=== PATIENT | male | born 1950 | race African-American/Black ===

== ENCOUNTER 2018-12-16 05:17 | Inpatient (IN) | payer MEDICARE, MEDICAID ==
[~2018-12-16] VITALS: Ht 180.3 cm; Wt 95.7 kg
[2018-12-16] MEDS ORDERED: KETOROLAC 60MG/2ML VIAL IM ONE (06:30)
[2018-12-16] MEDS ORDERED: MORPHINE SULFATE 10 MG/ML CPJ IM ONE (06:30)
[2018-12-16 07:08] LABS: HEMATOCRIT. 40.9 % (42.0-52.0); HEMOGLOBIN. 13.3 g/dL (14.0-18.0); MEAN CORPUSCULAR HEMOGLOBIN 28.7 pg (28.0-32.0); MEAN CORPUSCULAR VOLUME 88.3 fL (80.0-94.0); MEAN PLATELET VOLUME 7.3 fl (7.4-10.4); PLATELET 303 x1000/uL (130-400); RED BLOOD CELL COUNT 4.63 mill/uL (4.7-6.1); RED CELL DISTRIBUTION WIDTH 16.1 % (11.6-14.6)
[2018-12-16 07:14] LABS: CHLORIDE 107 mEq/L (98-107)
[2018-12-16] MEDS ORDERED: PIPERACILLIN/TAZ 3.375G PREMIX 50 ML IV ONE (07:30)
[2018-12-16] MEDS ORDERED: METRONIDAZOLE 500 MG PREMIX 100 ML IV ONE (07:30)
[2018-12-16 07:34] LABS: INR 0.9; PARTIAL THROMBOPLASTIN TIME 26.3 sec (23.4-31.0); PROTHROMBIN TIME 9.5 sec (9.1-11.1)
[2018-12-16] MEDS ORDERED: VANCOMYCIN 1 G PREMIX 200 ML IV SCH (08:15)
[2018-12-16 08:25] LABS: CLARITY URINE CLOUDY (CLEAR); COLOR URINE AMBER (YELLOW); KETONES URINE TRACE (NEGATIVE); LEUKOCYTE ESTERASE URINE NEGATIVE (NEGATIVE); NITRITE URINE NEGATIVE (NEGATIVE); OCCULT BLOOD URINE 3+ (NEGATIVE); PH URINE 5.5 (4.5-8.0); PROTEIN URINE 1+ (NEGATIVE); SPECIFIC GRAVITY URINE 1.028 (1.005-1.030)
[2018-12-16] MEDS ORDERED: INSULIN LISPRO 100 UNITS/ML SUBCUT ONE (09:30)
[2018-12-16 09:40] LABS: PLATELET ESTIMATE NORMAL
[2018-12-16] MEDS ORDERED: MAGNESIUM/ALUMINUM HYDROXIDE/SIMETHICONE 30ML UDC PO PRN (11:15)
[2018-12-16] MEDS ORDERED: ONDANSETRON HCL 4MG/2ML INJ IV PRN (11:15)
[2018-12-16] MEDS ORDERED: CLONIDINE 0.1MG TABLET PO PRN (11:15)
[2018-12-16] MEDS ORDERED: ENOXAPARIN 40MG/0.4ML SYR SUBCUT SCH (11:15)
[2018-12-16] MEDS ORDERED: GUAIFENESIN 200MG/10ML SUGAR FREE UDC PO PRN (11:15)
[2018-12-16] MEDS ORDERED: DEXTROSE 50% WATER 50ML SYRINGE IV PRN (11:15)
[2018-12-16] MEDS ORDERED: IPRATROPIUM/ALBUTEROL 0.5-3(2.5)MG/3ML NEB INH PRN (11:15)
[2018-12-16] MEDS ORDERED: NA PHOS,M-B/NA PHOS,DI-BA ENEMA 118ML PR PRN (11:15)
[2018-12-16] MEDS ORDERED: ACETAMINOPHEN 325MG TABLET PO PRN (11:15)
[2018-12-16] MEDS ORDERED: DOCUSATE SODIUM 100MG CAPSULE PO PRN (11:15)
[2018-12-16] MEDS ORDERED: TRAMADOL 50MG TABLET PO PRN (11:15)
[2018-12-16 11:44] LABS: T4 FREE 1.24 ng/dL (0.76-1.46)
[2018-12-16 12:00] VITALS: BP_SYST 138; BP_DIAS 65; BP_DIAS 68
[2018-12-16 12:07] LABS: VITAMIN B12 SERUM 525 pg/mL (211-911)
[2018-12-16 12:08] LABS: FOLIC ACID (FOLATE) SERUM > 20.00 ng/mL (>5.38)
[2018-12-16] MEDS: BLOOD SUGAR DIAGNOSTIC STRIP TEST SCH ×3 (12:20→20:25)
[2018-12-16] MEDS: ASCORBIC ACID 500 MG TABLET PO SCH ×2 (12:28→20:05)
[2018-12-16] MEDS: ZINC SULFATE 220 MG ( 50 ) CAPSULE PO SCH (12:28)
[2018-12-16] MEDS: FAMOTIDINE 20MG TABLET PO SCH ×2 (12:28→20:05)
[2018-12-16] MEDS: ENOXAPARIN 30MG/0.3ML SYR SUBCUT SCH ×2 (12:31→20:06)
[2018-12-16] MEDS: INSULIN LISPRO 100 UNITS/ML SUBCUT SCH ×2 (12:50→18:10)
[2018-12-16] MEDS: PIPERACILLIN/TAZ 3.375G PREMIX 50 ML IV SCH ×2 (15:13→21:33)
[2018-12-16 16:00] VITALS: BP 128/68
[2018-12-16] MEDS: LACTULOSE 20G/30ML UDC PO SCH (17:44)
[2018-12-16 20:00] VITALS: BP 134/68
[2018-12-16] MEDS: TAMSULOSIN HCL 0.4MG SR CAPSULE PO SCH (20:05)
[2018-12-16] MEDS ORDERED: ZOLPIDEM TARTRATE 5MG TABLET PO PRN (21:00)
[2018-12-16] MEDS: NICOTINE 14MG PATCH TD SCH (21:34)
[2018-12-17] MEDS: INSULIN LISPRO 100 UNITS/ML SUBCUT SCH ×5 (03:02→21:00)
[2018-12-17] MEDS: LACTULOSE 20G/30ML UDC PO SCH ×2 (06:00→17:31)
[2018-12-17] MEDS: PIPERACILLIN/TAZ 3.375G PREMIX 50 ML IV SCH ×3 (06:20→22:00)
[2018-12-17] MEDS: BLOOD SUGAR DIAGNOSTIC STRIP TEST SCH ×4 (07:20→22:42)
[2018-12-17 08:00] VITALS: BP 149/80
[2018-12-17] MEDS: TAMSULOSIN HCL 0.4MG SR CAPSULE PO SCH ×2 (09:27→22:31)
[2018-12-17] MEDS: DUTASTERIDE 0.5MG CAPSULE PO SCH (09:28)
[2018-12-17] MEDS: FAMOTIDINE 20MG TABLET PO SCH ×2 (09:28→22:31)
[2018-12-17] MEDS: ZINC SULFATE 220 MG ( 50 ) CAPSULE PO SCH (09:28)
[2018-12-17] MEDS: ASCORBIC ACID 500 MG TABLET PO SCH ×2 (09:28→22:31)
[2018-12-17] MEDS: ENOXAPARIN 30MG/0.3ML SYR SUBCUT SCH ×2 (09:29→22:31)
[2018-12-17] MEDS: NICOTINE 14MG PATCH TD SCH (09:30)
[2018-12-17 12:36] VITALS: BP 144/78
[2018-12-17 12:55] LABS: *AMPHETAMINES SCREEN URINE NEGATIVE (NEGATIVE); *BARBITURATES SCREEN URINE NEGATIVE (NEGATIVE); OPIATES URINE SCREEN NEGATIVE (NEGATIVE)
[2018-12-17 12:57] LABS: *COCAINE SCREEN URINE NEGATIVE (NEGATIVE)
[2018-12-17 12:58] LABS: PHENCYCLIDINE URINE SCREEN NEGATIVE (NEGATIVE)
[2018-12-17 12:59] LABS: *BENZODIAZEPINES SCREEN URINE NEGATIVE (NEGATIVE); CANNABINOID URINE SCREEN NEGATIVE (NEGATIVE)
[2018-12-17 13:01] LABS: METHADONE URINE SCREEN NEGATIVE (NEGATIVE)
[2018-12-17 16:25] VITALS: BP 147/78
[2018-12-17 20:00] VITALS: BP 144/83
[2018-12-18] VITALS: BP 148/75
[2018-12-18 04:00] VITALS: BP 148/82
[2018-12-18] MEDS: LACTULOSE 20G/30ML UDC PO SCH (06:00)
[2018-12-18] MEDS: PIPERACILLIN/TAZ 3.375G PREMIX 50 ML IV SCH (06:00)
[2018-12-18] MEDS: BLOOD SUGAR DIAGNOSTIC STRIP TEST SCH (07:20)
[2018-12-18] MEDS: INSULIN LISPRO 100 UNITS/ML SUBCUT SCH (07:50)
[2018-12-18 08:00] VITALS: BP 166/87
[2018-12-18] MEDS: NICOTINE 14MG PATCH TD SCH (09:00)
[2018-12-18] MEDS: DUTASTERIDE 0.5MG CAPSULE PO SCH (09:56)
[2018-12-18] MEDS: ZINC SULFATE 220 MG ( 50 ) CAPSULE PO SCH (09:56)
[2018-12-18] MEDS: TAMSULOSIN HCL 0.4MG SR CAPSULE PO SCH (10:00)
[2018-12-18] MEDS: FAMOTIDINE 20MG TABLET PO SCH (10:01)
[2018-12-18] MEDS: ASCORBIC ACID 500 MG TABLET PO SCH (10:01)
[2018-12-18] MEDS: ENOXAPARIN 30MG/0.3ML SYR SUBCUT SCH (10:03)
== END 2018-12-18 10:15 | disposition left against medical advice (07) | DRG 689 ==
LOC: ER 05:17 → 6EST 07:41 → EDBEDREQ 07:45 → ENRESERV 08:46
PROVIDERS: ADMIT Internal Medicine; ATTEND Internal Medicine
DX: N39.0 Urinary tract infection, site not specified (principal); G92 Toxic encephalopathy; E44.1 Mild protein-calorie malnutrition; R33.9 Retention of urine, unspecified; N30.80 Other cystitis without hematuria; E11.9 Type 2 diabetes mellitus without complications; I10 Essential (primary) hypertension; E78.00 Pure hypercholesterolemia, unspecified; F03.90 Unspecified dementia, unspecified severity, without behavioral disturbance, psychotic disturbance, mood disturbance, and anxiety; J45.909 Unspecified asthma, uncomplicated; K59.00 Constipation, unspecified; N28.1 Cyst of kidney, acquired; Z79.4 Long term (current) use of insulin; Z68.29 Body mass index [BMI] 29.0-29.9, adult
CPT/HCPCS: 36415; 71045; 74176; 80305; 82607; 82746; 82962; 83036; 83605; 84439; 84443; 93005; 93970; 96365; 96366; 96368; 96372; 99285; J1650; J1815; J1885; J2270; J2543; J3370; J3490